=== PATIENT | male | born 1980 | race Caucasian/White ===

== ENCOUNTER 2022-04-09 13:34 | Day surgery (SDC) | payer OTHER ==
[~2022-04-09] VITALS: Ht 193 cm; Wt 95.9 kg
[2022-04-09 14:02] VITALS: BP 146/87; PULSE 70; TEMP 98.1
[2022-04-09] MEDS ORDERED: PERCOCET 325 MG1 TA2 PO (16:04)
[2022-04-09] MEDS ORDERED: AMOXICILLIN 8751 TAB PO (16:04)
[2022-04-09 16:40] VITALS: BP 125/67; PULSE 73; TEMP 97.5
[2022-04-09 16:55] VITALS: BP 127/73; PULSE 71
[2022-04-09 16:56] VITALS: TEMP 98
[2022-04-09 17:10] VITALS: BP 122/66; PULSE 65
--- NOTE | 2022-04-09 17:51 | NUR ---
1640: Patient arrived back into [facility] from PACU. Patient is alert and oriented. Vital signs stable. Report received from JOSE Feliz Patient requesting chocolate pudding and sprite. Patient rating pain 6/10. Denies nausea. Call light left within reach. and kids at bedside. states Dr. Johnson called and spoke with her regarding surgery. Incision sites are clean, dry and intact. Ice packs on patient's neck and abdomen. 1655: Patient vitally stable. Tolerating food and drink well. Dr. Johnson notified of patient's pain, one time pain medication given to patient per OCT. New ice placed in patient's ice packs. 1720: Patient up to restroom via stand by assist. Patient able to void successfully. Meets discharge criteria. Patient to get dressed independently in room. 1730: IV removed without complications. Went through discharge instructions with patient and . Escorted to patient entrance via wheelchair. Patient got into personal vehicle unassisted and left in the care of his , Renee.
== END 2022-04-09 17:45 | disposition home or self-care (01) ==
LOC: SDCO 13:34
DX: K35.33 Acute appendicitis with perforation, localized peritonitis, and gangrene, with abscess (principal); K21.9 Gastro-esophageal reflux disease without esophagitis; F32.9 Major depressive disorder, single episode, unspecified; F41.9 Anxiety disorder, unspecified; F43.10 Post-traumatic stress disorder, unspecified; F17.200 Nicotine dependence, unspecified, uncomplicated; Z86.16 Personal history of COVID-19
CPT/HCPCS: J0690; J1100; J1170; J2270; J2405; J2704; J3010; J7120

== ENCOUNTER 2022-06-10 08:08 | Day surgery (SDC) | payer OTHER ==
[~2022-06-10] VITALS: Ht 190.5 cm; Wt 92.3 kg
[~2022-06-10 08:08] MED LIST: AMOXICILLIN 8751 TAB PO; PERCOCET 325 MG1 TA2 PO
[2022-06-10 09:42] VITALS: BP 141/94; PULSE 80; TEMP 97.4
[2022-06-10 10:10] VITALS: BP 112/98; PULSE 79; TEMP 97.6
--- NOTE | 2022-06-10 10:10 | NUR ---
Patient arrives to [facility] via cart, accompanied by [facility] RN. He is alert and oriented. He ambulates to the chair in his room with standby assist and steady gait. PIV to TKO. MOnitoring is applied -VSS and WNL on room air. Call light in reach. Family at bedside. Denies pain or nausea. Is given sprite, pepsi, water, toast, and a muffin per request. Tolerating PO well.
[2022-06-10 10:25] VITALS: BP 124/90; PULSE 84
[2022-06-10 10:40] VITALS: BP 118/92; PULSE 71
--- NOTE | 2022-06-10 10:51 | NUR ---
Patient has met discharge criteria. Discharge instructions are discussed. He denies any questions and verbalizes understanding. PIV is removed with catheter intact and hemostasis achieved. He changes to his clothing indepedently. He is escorted to the exit via wheelchair by staff and discharged to the care of his , who drives him home in a private vehicle at 1051.
== END 2022-06-10 10:51 | disposition home or self-care (01) ==
LOC: SDCO 08:08
DX: Z12.11 Encounter for screening for malignant neoplasm of colon (principal); K63.5 Polyp of colon; F17.210 Nicotine dependence, cigarettes, uncomplicated
CPT/HCPCS: J2704; J7120